=== PATIENT | male | born 1975 | race Caucasian/White ===

== ENCOUNTER 2017-02-01 03:20 | Emergency (ER) | payer BC, MEDICAID ==
[~2017-02-01] VITALS: Ht 175.3 cm; Wt 81.6 kg
[~2017-02-01 03:20] MED LIST: AMIT100TA PO; ASPI81TA85 PO; CO Q PO; FLAX100012 PO; LIPI20TA PO; MAGO400T PO; MIRT30TA3 PO; OMEG100011 PO; PRAZ5CAP PO; RIBO100C PO; TRAZ300T2 PO; VITA200016 PO; [UNRECOGNIZED DRUG - CODE] PO
[2017-02-01] MEDS ORDERED: TRAM50TA2 PO (03:32)
[2017-02-01] MEDS ORDERED: ONDANSETRON 4MG/2ML VIAL (J2405) IV ONE (04:00)
[2017-02-01] MEDS ORDERED: KETOROLAC 30 MG/ML VIAL (J1885) IV ONE (04:00)
[2017-02-01 04:10] LABS: BASO % 0.3 % (0.0-1.0); EOS # 0.1 K/mm3 (0.0-0.50); EOS % 0.5 % (0.0-3.0); LARGE UNSTAINED CELL # 0.1 K/mm3 (0.0-0.4); LARGE UNSTAINED CELL % 0.7 % (0.0-4.0); LYMPH # 0.9 K/mm3 (1.5-4.5); LYMPH % 6.6 % (24.0-44.0); MEAN CORPUSCULAR HEMOGLOBIN 31.4 pg (27.0-33.0); MEAN CORPUSCULAR HGB CONC 33.7 g/dl (32.0-36.5); MONO # 0.5 K/mm3 (0.0-0.8); MONO % 3.9 % (0.0-5.0); NEUTROPHILS # 10.9 K/mm3 (1.8-7.7); NEUTROPHILS % 88.1 % (36.0-66.0); PLATELET COUNT, AUTOMATED 264 k/mm3 (150-450); RED CELL DISTRIBUTION WIDTH 12.8 % (11.5-14.5); WHITE BLOOD COUNT 12.4 K/mm3 (4.0-10.0)
[2017-02-01] MEDS: MORPHINE 4 MG/ML 1ML SYRINGE IV PRN ×2 (04:14→04:58)
[2017-02-01 04:34] LABS: ALBUMIN 4.3 GM/DL (3.2-5.2); ALBUMIN/GLOBULIN RATIO 1.43 (1.00-1.93); ALKALINE PHOSPHATASE 67 U/L (45-117); ALT/SGPT 33 U/L (12-78); ANION GAP 9 MEQ/L (8-16); AST/SGOT 27 U/L (15-37); BILIRUBIN,DIRECT < 0.1 MG/DL (0.0-0.2); BILIRUBIN,TOTAL 0.6 MG/DL (0.2-1.0); BLOOD UREA NITROGEN 20 MG/DL (7-18); CALCIUM LEVEL 9.1 MG/DL (8.5-10.1); CARBON DIOXIDE LEVEL 24 MEQ/L (21-32); CHLORIDE LEVEL 107 MEQ/L (98-107); CREATININE FOR GFR 1.77 MG/DL (0.70-1.30); GLOMERULAR FILTRATION RATE 45.4 (>60); GLUCOSE, FASTING 124 MG/DL (70-105); POTASSIUM SERUM 4.3 MEQ/L (3.5-5.1); SODIUM LEVEL 140 MEQ/L (136-145); TOTAL PROTEIN 7.3 GM/DL (6.4-8.2)
--- NOTE | 2017-02-01 04:40 | REPUSA ---
CLINICAL HISTORY: Abdominal pain. TECHNIQUE: Multiple axial, sagittal and coronal CT images were obtained through the abdomen and pelvi s without administration of oral or IV contrast material. COMMENTS: 4.5 mm obstructing stone of the left ureterovesical junction. Mild left hydroureteronephrosis. Bilateral renal stones ranging in size between 2 and 4 mm. The liver is of uniform attenuation without mass or defect. There is no intra or extrahepatic biliary ductal dilatation. The spleen is normal. The gallbladder is within normal limits. The pancreas is of normal contour and attenuation characteristics. There is no evidence of adrenal mass. The kidneys are normal in size, shape and configuration. There is no evidence for appendicitis. There is no bowel wall thickening. No evidence for small or la rge bowel obstruction. There is no evidence of abdominal ascites or lymphadenopathy. There is no evidence of intrinsic or extrinsic bladder mass. There is no pelvic ascites or lymphadeno blanche. Images of the lung bases show no evidence of pleural or parenchymal mass. There are no pleural effusi ons. The bony structures are free of lytic or blastic lesions. Multilevel degenerative changes are seen in volving the thoracolumbar spine. Scattered calcifications are seen involving the aorta and major branches compatible with atherosclero sis. IMPRESSION: Obstructing stone at the left ureterovesical junction. Bilateral nephrolithiasis. Mild prostatomegaly. Thank you for your kind referral of this patient.
[2017-02-01] MEDS ORDERED: CIPROFLOXACIN 500 MG TAB PO ONE (05:15)
[2017-02-01] MEDS ORDERED: TAMSULOSIN 0.4 MG CAP PO ONE (05:15)
[2017-02-01] MEDS ORDERED: OXYCODONE/APAP 5MG/325MG(BULK FOR ED) 1 TABLET PO ONE (05:15)
[2017-02-01] MEDS ORDERED: PERC5TAB6 PO (05:45)
[2017-02-01] MEDS ORDERED: FLOM5CAP PO (05:45)
[2017-02-01] MEDS ORDERED: CIPR500T89 PO (05:45)
[2017-02-01 05:56] VITALS: BP 110/73
== END 2017-02-01 06:00 | disposition home or self-care (01) ==
LOC: M ED 04:30
DX: N20.1 Calculus of ureter (principal); Z79.899 Other long term (current) drug therapy; Z79.82 Long term (current) use of aspirin
CPT/HCPCS: 74176; 80048; 80076; 81001; 83690; 85025; 87086; 93041; 96374; 96375; 96376; 99284; J1885; J2405

== ENCOUNTER → 2018-05-25 | Outpatient (REF) | payer BC ==
[2018-05-25 16:47] LABS: APPEARANCE, URINE CLOUDY (CLEAR); BACTERIA, URINE AUTO NEGATIVE (NEGATIVE); BILIRUBIN, URINE AUTO NEGATIVE (NEGATIVE); BLOOD, URINE BLOOD NEGATIVE (NEGATIVE); COLOR, URINE AMBER (YELLOW); GLUCOSE, URINE (UA) AUTO NEGATIVE (NEGATIVE); KETONE, URINE AUTO NEGATIVE (NEGATIVE); LEUKOCYTE ESTERASE, URINE AUTO NEGATIVE (NEGATIVE); MUCUS, URINE SMALL (NEGATIVE); NITRITE, URINE AUTO NEGATIVE (NEGATIVE); PROTEIN, URINE AUTO NEGATIVE (NEGATIVE); RBC, URINE AUTO 4 /HPF (0-3); SPECIFIC GRAVITY URINE AUTO 1.023 (1.002-1.035); SQUAMOUS EPITHELIAL CELL UR AU 0 /HPF (0-6); UROBILINOGEN, URINE AUTO 0.2 mg/dL (0.0-2.0); WBC, URINE AUTO 1 /HPF (0-3)
== END ==
LOC: M LABDRAW1 12:32
DX: R31.0 Gross hematuria (principal)
CPT/HCPCS: 81001

== ENCOUNTER → 2018-06-04 | Outpatient (REF) | payer BC ==
[2018-06-04 15:47] LABS: APPEARANCE, URINE HAZY (CLEAR); BACTERIA, URINE AUTO NEGATIVE (NEGATIVE); BILIRUBIN, URINE AUTO NEGATIVE (NEGATIVE); BLOOD, URINE BLOOD NEGATIVE (NEGATIVE); COLOR, URINE AMBER (YELLOW); GLUCOSE, URINE (UA) AUTO NEGATIVE (NEGATIVE); KETONE, URINE AUTO NEGATIVE (NEGATIVE); LEUKOCYTE ESTERASE, URINE AUTO NEGATIVE (NEGATIVE); MUCUS, URINE SMALL (NEGATIVE); NITRITE, URINE AUTO NEGATIVE (NEGATIVE); PROTEIN, URINE AUTO NEGATIVE (NEGATIVE); RBC, URINE AUTO 0 /HPF (0-3); SPECIFIC GRAVITY URINE AUTO 1.023 (1.002-1.035); SQUAMOUS EPITHELIAL CELL UR AU 0 /HPF (0-6); UROBILINOGEN, URINE AUTO 0.2 mg/dL (0.0-2.0); WBC, URINE AUTO 1 /HPF (0-3)
== END ==
LOC: M SMT 15:35
DX: R31.0 Gross hematuria (principal)
CPT/HCPCS: 81001

== ENCOUNTER → 2018-06-09 | Outpatient (CLI) | payer BC ==
[~2018-06-09] MED LIST changes: -AMIT100TA PO; -ASPI81TA85 PO; -CO Q PO; -FLAX100012 PO; +ISOVUE-370 76% 100ML VIAL (Q9967) As Ordered; -LIPI20TA PO; -MAGO400T PO; -MIRT30TA3 PO; -OMEG100011 PO; -PRAZ5CAP PO; -RIBO100C PO; -TRAZ300T2 PO; -VITA200016 PO; -[UNRECOGNIZED DRUG - CODE] PO
== END ==
LOC: M RAD 07:54
DX: N20.0 Calculus of kidney (principal)
CPT/HCPCS: Q9967

== ENCOUNTER → 2018-10-30 | Outpatient (CLI) | payer BC ==
[~2018-10-30] MED LIST changes: +AMIT100TA PO; +ASPI81TA85 PO; +CIPR-249 PO; +CO Q PO; +FLAX100012 PO; +FLOM0.4C39 PO; -ISOVUE-370 76% 100ML VIAL (Q9967) As Ordered; +LIPI20TA PO; +MAGO400T PO; +MIRT30TA3 PO; +OMEG100011 PO; +PERC5TAB12 PO; +PRAZ5CAP PO; +RIBO100C PO; +TRAM50TA2 PO; +TRAZ300T2 PO; +VITA200016 PO; +[UNRECOGNIZED DRUG - CODE] PO
--- NOTE | 2018-10-30 09:32 | REP ---
KUB: Single view. HISTORY: Kidney stone. Comparison CT study of the abdomen is from June 09, 2018. FINDINGS: There is a 5 mm calculus projecting over the lower pole right kidney. No other urinary tract calculi are appreciated. There is a phlebolith in the right pelvis. IMPRESSION: Intrarenal nephrolithiasis lower pole right kidney. Normal bowel gas pattern. Otherwise negative. Electronically Signed by Hawk Vega MD 10/30/2018 07:07 P
[2018-10-30 13:36] LABS: APPEARANCE, URINE HAZY (CLEAR); BACTERIA, URINE AUTO NEGATIVE (NEGATIVE); BILIRUBIN, URINE AUTO NEGATIVE (NEGATIVE); BLOOD, URINE BLOOD NEGATIVE (NEGATIVE); CALCIUM OXALATE CRYSTALS SMALL; COLOR, URINE YELLOW (YELLOW); GLUCOSE, URINE (UA) AUTO NEGATIVE (NEGATIVE); KETONE, URINE AUTO NEGATIVE (NEGATIVE); LEUKOCYTE ESTERASE, URINE AUTO NEGATIVE (NEGATIVE); MUCUS, URINE SMALL (NEGATIVE); NITRITE, URINE AUTO NEGATIVE (NEGATIVE); PROTEIN, URINE AUTO NEGATIVE (NEGATIVE); RBC, URINE AUTO 0 /HPF (0-3); SPECIFIC GRAVITY URINE AUTO 1.028 (1.002-1.035); SQUAMOUS EPITHELIAL CELL UR AU 0 /HPF (0-6); UROBILINOGEN, URINE AUTO 0.2 mg/dL (0.0-2.0); WBC, URINE AUTO 1 /HPF (0-3)
== END ==
LOC: M SMT 09:00
PROVIDERS: ATTEND Nurse Practitioner Family
DX: N20.0 Calculus of kidney (principal)

== ENCOUNTER → 2018-11-18 | Outpatient (REF) | payer BC ==
[~2018-11-18] MED LIST changes: +EFFE75CA2 PO; +TOPI100T9 PO; +VITA100054 PO; +VITA500T PO; +WELLTAB38 PO
[2018-11-18 13:20] LABS: BLOOD UREA NITROGEN 20 MG/DL (7-18); CALCIUM LEVEL 9.1 MG/DL (8.5-10.1); CARBON DIOXIDE LEVEL 26 MEQ/L (21-32); CHLORIDE LEVEL 107 MEQ/L (98-107); CREATININE FOR GFR 1.07 MG/DL (0.70-1.30); GLOMERULAR FILTRATION RATE > 60.0 (>60); GLUCOSE, FASTING 77 MG/DL (70-100); HEMOGLOBIN 16.1 g/dl (13.5-17.5); MEAN CORPUSCULAR HGB CONC 33.5 g/dl (32.0-36.5); MEAN CORPUSCULAR VOLUME 92.5 fl (80.0-96.0); PLATELET COUNT, AUTOMATED 247 10^3/uL (150-450); RED BLOOD COUNT 5.19 10^6/uL (4.30-6.10); SODIUM LEVEL 140 MEQ/L (136-145); WHITE BLOOD COUNT 6.9 10^3/uL (4.0-10.0)
[2018-11-18 13:33] LABS: INR 0.95; PROTHROMBIN TIME 12.8 SECONDS (12.1-14.4)
== END ==
LOC: M LABDRWAD 12:14
PROVIDERS: ATTEND Nurse Practitioner Family
DX: N20.0 Calculus of kidney (principal); Z01.818 Encounter for other preprocedural examination

== ENCOUNTER → 2018-12-22 | Outpatient (CLI) | payer BC ==
--- NOTE | 2018-12-23 07:08 | ECGEPIP ---
Stationary ECG Study [facility] Test Date: 2018-12-22 Pat Name: ZULEIMA NEGRON Department: Room: - Gender: M Banquet Director: : [id number] Requested By: SINDY Oliveira Order Number: [id number] Reading MD: Leroy Sotelo Measurements Intervals [place] Rate: 62 P: 22 AL: 143 QRS: 45 QRSD: 105 T: 22 QT: 370 QTc: 378 Interpretive Statements SINUS RHYTHM Slow precordial R-wave progression with miniscule inferior Q waves; body habitus. No change from 05/11/14. Electronically Signed On 12-23-2018 7:08:13 EST by Leroy Sotelo
== END ==
LOC: M EKG 12:29
PROVIDERS: ATTEND Urology
DX: G47.30 Sleep apnea, unspecified (principal)

== ENCOUNTER 2018-12-24 09:01 | Day surgery (SDC) | payer BC ==
[~2018-12-24] VITALS: Ht 175.3 cm; Wt 91.4 kg
[~2018-12-24 09:01] MED LIST changes: +LIDOCAINE 1% MDV 20ML VIAL SQ PRN; +LR 1,000 ML IV ONE
[2018-12-24] MEDS ORDERED: LIDOCAINE 2% INJ 100 MG/5 ML SDV (FOR ANES.) As Ordered ONE (10:15)
[2018-12-24] MEDS ORDERED: MIDAZOLAM INJ 2 MG/2 ML VIAL (J2250) As Ordered ONE (10:16)
[2018-12-24] MEDS ORDERED: PROPOFOL 200 MG/20 ML VIAL As Ordered ONE (10:16)
[2018-12-24] MEDS ORDERED: fentaNYL 100 MCG/2 ML INJECTION (J3010) As Ordered ONE (10:16)
[2018-12-24] MEDS ORDERED: PHENYLephrine HCL 500 MCG/5 ML (100MCG/ML) SYRINGE (J2370) As Ordered ONE (11:06)
[2018-12-24] MEDS ORDERED: ONDANSETRON 4MG/2ML VIAL (J2405) As Ordered ONE (11:06)
[2018-12-24] MEDS ORDERED: dexameTHASONE 4 MG/ML 1ML VIAL (J1100) As Ordered ONE (11:06)
[2018-12-24] MEDS ORDERED: ePHEDrine SULFATE 25 MG/5 ML(5MG/ML) SYRINGE As Ordered ONE (11:06)
[2018-12-24 12:40] VITALS: BP 128/83
--- NOTE | 2018-12-24 12:58 | RO ---
DATE OF PROCEDURE: 12/24/2018 PREPROCEDURE DIAGNOSIS: Right kidney stone. POSTPROCEDURE DIAGNOSIS: Right kidney stone. PROCEDURE: Right extracorporeal shock wave lithotripsy. SURGEON: Eliseo Shaw MD REDEYE GUNNER: None. ANESTHESIA: Monitored anesthesia care (MAC). OPERATIVE INDICATIONS: This is a 43-year-old male who was found to have a 6 mm right sided kidney stone. He was brought to the operating room today for the above listed procedure. DESCRIPTION OF PROCEDURE: The patient was brought to the operating room an MAC anesthesia was administered. Prophylactic antibiotics were infused. He was then placed in supine position in preparation for right sided extracorporeal shock wave lithotripsy. Fluoroscopy and ultrasonography were utilized to monitor stone position and fragmentation throughout the procedure. Shock waves were then delivered to the right sided kidney stone ungated. There were no arrhythmias. The stone did appear to fragment well very early on. Because of this, only 1750 shocks were delivered. Once done, the stone was adequately fragmented. At point, the patient was then awakened from anesthesia and transported to the recovery room in stable condition. ESTIMATED BLOOD LOSS: 0 mL. COMPLICATIONS: None. SPECIMENS: None. PLAN: The patient will follow-up in the clinic in a few weeks with imaging prior to assess for residual stone burden. JENNIFER
== END 2018-12-24 13:01 | disposition home or self-care (01) ==
LOC: M SDC 09:01
PROVIDERS: ATTEND Urology
DX: N20.0 Calculus of kidney (principal); E78.5 Hyperlipidemia, unspecified; K90.0 Celiac disease; K21.9 Gastro-esophageal reflux disease without esophagitis; F32.9 Major depressive disorder, single episode, unspecified; F43.10 Post-traumatic stress disorder, unspecified; G47.30 Sleep apnea, unspecified; Z79.82 Long term (current) use of aspirin; Z79.899 Other long term (current) drug therapy
CPT/HCPCS: 50590; J0690; J1100; J2250; J2370; J2405; J3010

== ENCOUNTER → 2018-12-24 | Outpatient (CLI) | payer BC ==
--- NOTE | 2018-12-24 09:06 | REP ---
Clinical: Kidney stone. Comparison: 10/30/2018. Technique: Single supine view of the abdomen and pelvis. Findings: 5 mm calculus overlying the lower pole right kidney is again identified. No further urinary tract calcifications are appreciated. A 3 mm calcification in the right colin pelvis likely represents phlebolith. The bowel gas pattern is nonspecific. The skeletal structures are intact. Impression: 5 mm nonobstructing right renal calculus again noted. Electronically Signed by John Massey MD 12/24/2018 08:57 A
== END ==
LOC: M RAD 08:43
PROVIDERS: ATTEND Urology
DX: Z01.818 Encounter for other preprocedural examination (principal); N20.0 Calculus of kidney

== ENCOUNTER → 2019-01-14 | Outpatient (REF) | payer BC ==
[~2019-01-14] MED LIST changes: -LIDOCAINE 1% MDV 20ML VIAL SQ PRN; -LR 1,000 ML IV ONE
[2019-01-19 14:12] LABS: Ca Ox Monohydrate 45 % (.)
== END ==
LOC: M SMT 13:12
PROVIDERS: ATTEND Nurse Practitioner Family
DX: N20.0 Calculus of kidney (principal)

== ENCOUNTER → 2019-01-14 | Outpatient (CLI) | payer BC ==
--- NOTE | 2019-01-15 17:48 | REP ---
Clinical: Right kidney stone. Technique: Two supine views of the abdomen and pelvis. Comparison: 12/24/2018. Findings: Evaluation is significantly limited due to technique and overlying bowel gas. Previously noted nonobstructing right renal calculus is not visualized on current examination. Stable phleboliths noted in the right colin pelvis. Moderate fecal stasis. No bowel obstruction. No organomegaly. Skeletal structures intact. Impression: Limited examination. Previously noted right renal calculus not visualized on current examination. Electronically Signed by John Massey MD 01/15/2019 05:40 P
== END ==
LOC: M SMT 08:56
PROVIDERS: ATTEND Nurse Practitioner Family
DX: N20.0 Calculus of kidney (principal)

== ENCOUNTER → 2019-07-13 | Outpatient (CLI) | payer BC ==
--- NOTE | 2019-07-14 03:17 | REP ---
Clinical: Kidney stone. Technique: Two supine views of the abdomen and pelvis. Comparison: 01/14/2019, 12/24/2018, 10/30/2018 Findings: Small rounded calcification in the right colin pelvis remains stable and consistent with phlebolith. Previously noted nonobstructing right renal calculus is not identifiable on current examination. No obvious urinary tract calcifications are appreciated by current examination. Bowel gas pattern is nonspecific. Skeletal structures are intact. Impression: No obvious urinary tract calcifications identified. Electronically Signed by John Massey MD 07/14/2019 03:09 A
== END ==
LOC: M SMT 08:44
PROVIDERS: ATTEND Nurse Practitioner Family
DX: N20.0 Calculus of kidney (principal)

== ENCOUNTER → 2020-03-02 | Outpatient (CLI) | payer BC ==
[~2020-03-02] MED LIST changes: +VITA-243 PO; -VITA500T PO
== END ==
LOC: M LABSMTC 13:02
PROVIDERS: ATTEND Family Medicine
DX: Z20.828 Contact with and (suspected) exposure to other viral communicable diseases (principal)

== ENCOUNTER → 2020-07-17 | Outpatient (CLI) | payer BC ==
[~2020-07-17] MED LIST changes: -ASPI81TA85 PO; +ASPI81TA86 PO
--- NOTE | 2020-07-28 08:29 | REP ---
KUB: 2-VIEWS COMPARISON: Radiograph from 07/13/19. FINDINGS: There are two partially digested tablets projecting in the left mid-abdomen. No urinary tract calculus is visible. Psoas margins and flank stripes are intact. The bowel gas pattern is otherwise unremarkable. There is a phlebolith in the right true pelvis, unchanged. IMPRESSION: No urinary tract calculus seen. Two partially digested tablets in the left mid- abdomen. MTDD
== END ==
LOC: M ADAMS 09:49
PROVIDERS: ATTEND Nurse Practitioner Family
DX: Z87.442 Personal history of urinary calculi (principal)

== ENCOUNTER 2024-06-23 08:28 | Day surgery (SDC) | payer OTHER ==
[~2024-06-23] VITALS: Ht 175.3 cm; Wt 90.4 kg
[~2024-06-23 08:28] MED LIST changes: +B-2100TA PO; +BAYE81TA10 PO; +BUPR10TASR PO; +DULO1CAP6 PO; +FEXO-116 PO; +IRON325T2 PO; +MAGN400T35 PO; +MODA200T15 PO; +NS 1,000 ML IV ONE; +OMEG10002 PO; +PRAM1TAB7 PO; +PRAZ2CAP PO; +PROP120C PO; +TAMS1CAP17 PO
[2024-06-23 09:41] VITALS: TEMP 98.2
[2024-06-23 09:57] VITALS: BP 121/65; O2SAT 97
== END 2024-06-23 10:05 | disposition home or self-care (01) ==
LOC: M OPP 08:28
PROVIDERS: ATTEND Surgery
DX: Z12.11 Encounter for screening for malignant neoplasm of colon (principal); Z86.010 Personal history of colon polyps; D12.2 Benign neoplasm of ascending colon; D64.0 Hereditary sideroblastic anemia; G47.33 Obstructive sleep apnea (adult) (pediatric); Z99.89 Dependence on other enabling machines and devices; Z79.1 Long term (current) use of non-steroidal anti-inflammatories (NSAID); Z79.82 Long term (current) use of aspirin; Z79.02 Long term (current) use of antithrombotics/antiplatelets; Z79.899 Other long term (current) drug therapy

== ENCOUNTER → 2025-01-27 | Outpatient (CLI) | payer OTHER ==
[~2025-01-27] MED LIST changes: -FEXO-116 PO; +FEXO-189 PO; -NS 1,000 ML IV ONE
== END ==
LOC: M PLARAD 09:41
PROVIDERS: ATTEND Student in an Organized Health Care Education/Training Program
DX: M47.22 Other spondylosis with radiculopathy, cervical region (principal); Z98.1 Arthrodesis status